=== PATIENT | male | born 1965 ===

== ENCOUNTER 2018-08-02 16:22 | Emergency (ER) | payer OTHER ==
[2018-08-02 17:06] VITALS: BP 148/91; RESP 18; TEMP 98.5
--- NOTE | 2018-08-02 18:13 | C.PDOC ---
History Of Present Illness 53-year-old male presents to the ED for evaluation of a rectal hemorrhoid which has been present for around one week. Patient reports pain, for which he has been taking Tylenol, but states he has been passing stool normally. Patient experienced some bleeding two days ago, which has since resolved. Patient also reports urinary hesitancy for the past year. Patient was referred to the ED for evaluation by Dr. Ochoa. He denies fever, chills, abdominal pain. Time Seen by Provider: 08/02/18 17:59 Chief Complaint (Nursing): Abdominal Pain History Per: Patient History/Exam Limitations: no limitations Onset/Duration Of Symptoms: Other (one week) Current Symptoms Are (Timing): Still Present Quality Of Discomfort: "Pain" Associated Symptoms: denies: Fever, Chills Additional History Per: Patient Past Medical History Reviewed: Historical Data, Nursing Documentation, Vital Signs Vital Signs: Last Vital Signs Temp 98.5 F 08/02/18 17:03 Pulse 106 H 08/02/18 17:03 Resp 18 08/02/18 17:03 BP 148/91 H 08/02/18 17:03 Pulse Ox 96 08/02/18 17:03 - Medical History PMH: No Chronic Diseases Surgical History: Cholecystectomy Family History: States: Unknown Family Hx - Social History Hx Alcohol Use: No Hx Substance Use: No - Immunization History Hx Tetanus Toxoid Vaccination: No Hx Influenza Vaccination: No Review Of Systems Gastrointestinal: Positive for: Rectal Pain, Other (rectal hemorrhoid ). Negative for: Abdominal Pain Genitourinary: Positive for: Other (urinary hesitancy) Physical Exam - Physical Exam Appears: Non-toxic, No Acute Distress Skin: Normal Color, Warm, Dry Head: Atraumatic, Normacephalic Eye(s): bilateral: Normal Inspection Oral Mucosa: Moist Neck: Supple Chest: Symmetrical, No Deformity Cardiovascular: Rhythm Regular Respiratory: No Accessory Muscle Use Gastrointestinal/Abdominal: Soft, No Tenderness, No Guarding, No Rebound Rectal: Hemorrhoids (small, soft, non-thrombosed right-sided hemorrhoid with minimal tenderness. no active bleeding ) Extremity: Normal ROM, Capillary Refill (less than 2 seconds ) Neurological/Psych: Oriented x3, Normal Speech, Normal Cognition ED Course And Treatment O2 Sat by Pulse Oximetry: 96 (on RA) Pulse Ox Interpretation: Normal Disposition - Disposition Referrals: Nadeem Ochoa MD [Staff Provider] - Marj Swenson MD [Staff Provider] - Disposition: HOME/ ROUTINE Disposition Time: 18:12 Condition: STABLE Additional Instructions: Sit in a warm bath several times a day to keep the area clean. Follow up with the [facility] surgeon as advised by Dr Ochoa. Prescriptions: Hydrocortisone 2.5% (Rectal) [Anusol-HC] 30 applic [place] BID #30 gm Instructions: Hemorrhoids Forms: [facility] [employer] (Syriac) - Clinical Impression Clinical Impression: External hemorrhoid - PA / [employer] / Resident Statement MD/DO has reviewed & agrees with the documentation as recorded. - Scribe Statement The provider has reviewed the documentation as recorded by the Scribe (Cordelia Garzon) Provider Attestation: All medical record entries made by the Scribe were at my direction and personally dictated by me. I have reviewed the chart and agree that the record accurately reflects my personal performance of the history, physical exam, medical decision making, and the department course for this patient. I have also personally directed, reviewed, and agree with the discharge instructions and disposition.
[2018-08-02 18:57] VITALS: PULSE 94; O2SAT 100
== END 2018-08-02 19:25 | disposition home or self-care (01) ==
LOC: C.ER 16:22
DX: K64.4 Residual hemorrhoidal skin tags (principal)